=== PATIENT | female | born 1975 | race Caucasian/White ===

== ENCOUNTER 2019-10-25 14:57 | Emergency (ER) | payer OTHER ==
[~2019-10-25] VITALS: Ht 170.2 cm; Wt 68.2 kg
[2019-10-25 15:08] VITALS: Ht 170.2 cm; Wt 68.2 kg
[2019-10-25] MEDS ORDERED: SINGULAIR10 MG PO (15:10)
[2019-10-25] MEDS ORDERED: CLARITIN 10 MG10 MG PO (15:10)
[2019-10-25 15:43] LABS: BASOPHILS 0.3 % (0-2); EOSINOPHILS 2.9 % (0-7); HEMATOCRIT 38.1 % (36.0-48.0); HEMOGLOBIN 12.3 g/dL (12-16); IMMATURE GRANULOCYTES 0.2 % (0-5); MCHC 32.3 g/dL (31.0-37.0); MCV 86.6 fL (80.0-100.0); MEAN PLATELET VOLUME 9.3 fL (7.4-10.4); MONOCYTES 5.5 % (2-11); NEUTROPHILS 59.1 % (40-80); PLATELET COUNT 244 10x3/uL (130-400); RDW 14.1 % (11.5-14.5); WBC 6.6 10x3/uL (4.8-10.8)
[2019-10-25 15:54] LABS: BILIRUBIN NEGATIVE (NEGATIVE); GLUCOSE NEGATIVE (NEGATIVE); KETONE NEGATIVE (NEGATIVE); NITRITE NEGATIVE (NEGATIVE); UROBILINOGEN NORMAL (NORMAL)
[2019-10-25 15:58] LABS: BACTERIA FEW /hpf (NEGATIVE); EPITHELIAL CELLS OCC /hpf (0-5); RED CELLS - URINE 25-50 /hpf (0-5); WHITE CELLS - URINE OCC /hpf (NEGATIVE)
[2019-10-25 15:59] LABS: HCG URINE NEGATIVE (NEGATIVE)
[2019-10-25 16:00] LABS: ANION GAP 11.5 mmol/L (8-16); CALCIUM 8.6 mg/dL (8.5-10.1); CARBON DIOXIDE 28.9 mmol/L (21.0-32.0); POTASSIUM - SERUM 3.4 mmol/L (3.5-5.1)
[2019-10-25 16:05] LABS: ALBUMIN 3.8 g/dL (3.4-5.0); BILIRUBIN - TOTAL 0.19 mg/dL (0.2-1.3)
[2019-10-25] MEDS ORDERED: MIRALAX17 GM PO (18:18)
[2019-10-25] MEDS ORDERED: TORADOL10 MG PO (18:18)
[2019-10-25 18:25] VITALS: BP 113/62
== END 2019-10-25 18:35 | disposition home or self-care (01) ==
LOC: D.ER 14:57
PROVIDERS: Family Medicine
DX: N20.0 Calculus of kidney (principal); K59.00 Constipation, unspecified; R10.9 Unspecified abdominal pain; K21.9 Gastro-esophageal reflux disease without esophagitis; R11.0 Nausea

== ENCOUNTER 2019-12-16 18:00 | Outpatient (CLI) | payer OTHER ==
[2019-10-25 15:08] VITALS: BMI 23.5
[~2019-12-16 18:00] MED LIST: CLARITIN 10 MG10 MG PO; MIRALAX17 GM PO; SINGULAIR10 MG PO; TORADOL10 MG PO
== END 2019-12-16 23:59 | disposition home or self-care (01) ==
LOC: D.MAMMO 18:00
PROVIDERS: ATTEND Student in an Organized Health Care Education/Training Program
DX: Z12.31 Encounter for screening mammogram for malignant neoplasm of breast (principal)